=== PATIENT | male | born 1930 | race African-American/Black ===

== ENCOUNTER → 2017-08-01 | Outpatient (CLI) | payer MEDICARE ==
[2017-08-01 07:32] LABS: Urine RBC None Seen /hpf (0 - 3)
[2017-08-01 07:35] LABS: Basophils # (auto) 0 uL; Basophils % (auto) 0.6 % (0.0-2.0); Eosinophils # (auto) 0.1 uL; Eosinophils % (auto) 1.4 % (0.0-7.0); Hematocrit 39.4 % (41.0-53.0); Lymphocytes # (auto) 2.1 uL; Lymphocytes % (auto) 36.8 % (10.0-50.0); Mean Corpuscular Hemoglobin 29.8 pg (28.0-32.0); Mean Corpuscular Hgb Conc. 33.1 g/dL (32.0-36.0); Mean Platelet Volume 9.1 fL (7.4-10.4); Monocytes # (auto) 0.5 uL; Monocytes % (auto) 9.3 % (0.0-12.0); Neutrophils % (auto) 51.9 % (37.0-80.0); Platelet Count (auto) 185 10^3/uL (140-450); Red Cell Distribution Width 15.9 % (11.6-16.0); White Blood Cell 5.8 10^3/uL (4.4-10.8)
[2017-08-01 07:51] LABS: Urine Bilirubin Negative (Negative); Urine Blood Negative /uL (Negative); Urine Color Yellow (Yellow); Urine Glucose Normal (Normal); Urine Ketone Negative (Negative); Urine Nitrite Negative (Negative); Urine Squamous Epithelial Cell FEW /hpf (<5); Urine Urobilinogen Normal (Negative); Urine pH 5.5 (5.0-8.0)
[2017-08-01 07:58] LABS: Albumin 3.3 g/dL (3.4-5.0); Bilirubin, Total 0.2 mg/dL (0.2-1.0); Calcium 8.6 mg/dL (8.5-10.1); Potassium 3.8 mmol/L (3.5-5.1); Total Protein 7.1 g/dL (6.4-8.2)
== END | disposition home or self-care (01) ==
LOC: LAB 07:06
PROVIDERS: ATTEND Internal Medicine
DX: I10 Essential (primary) hypertension (principal); E11.9 Type 2 diabetes mellitus without complications; R97.20 Elevated prostate specific antigen [PSA]
CPT/HCPCS: 36415; 80053; 80061; 81001; 82043; 82607; 83036; 84153; 84439; 84443; 85025; 85652

== ENCOUNTER → 2018-01-27 | Outpatient (CLI) | payer MEDICARE ==
[2018-01-27 09:02] LABS: Basophils # (auto) 0 uL; Basophils % (auto) 0.6 % (0.0-2.0); Eosinophils # (auto) 0 uL; Eosinophils % (auto) 0.6 % (0.0-7.0); Hematocrit 41.6 % (41.0-53.0); Hemoglobin 13.5 g/dL (13.5-17.5); Lymphocytes # (auto) 2.1 uL; Lymphocytes % (auto) 34.7 % (10.0-50.0); Mean Corpuscular Hemoglobin 28.8 pg (28.0-32.0); Mean Corpuscular Hgb Conc. 32.4 g/dL (32.0-36.0); Mean Corpuscular Volume 88.7 fL (80.0-100.0); Monocytes # (auto) 0.4 uL; Monocytes % (auto) 7.2 % (0.0-12.0); Neutrophils # (auto) 3.5 uL; Neutrophils % (auto) 56.9 % (37.0-80.0); Platelet Count (auto) 257 10^3/uL (140-450); Red Blood Cells 4.69 10^6/uL (4.5-5.90); Red Cell Distribution Width 15.5 % (11.8-14.3); White Blood Cell 6.2 10^3/uL (4.4-10.8)
== END | disposition home or self-care (01) ==
LOC: LAB 08:38
PROVIDERS: ATTEND Internal Medicine
DX: I10 Essential (primary) hypertension (principal); E11.21 Type 2 diabetes mellitus with diabetic nephropathy; E53.8 Deficiency of other specified B group vitamins
CPT/HCPCS: 36415; 83036; 83540; 85025

== ENCOUNTER → 2018-02-17 | Outpatient (CLI) | payer MEDICARE | END | disposition home or self-care (01) | LOC: XYW 08:11 | PROVIDERS: ATTEND Internal Medicine | DX: R60.9 Edema, unspecified (principal); I10 Essential (primary) hypertension; E11.21 Type 2 diabetes mellitus with diabetic nephropathy | CPT/HCPCS: 93306 ==

== ENCOUNTER 2018-09-23 19:14 | Inpatient (IN) | payer MEDICARE, MEDICAID ==
[~2018-09-23] VITALS: Ht 167.6 cm; Wt 95.3 kg
[2018-09-23] MEDS ORDERED: PROMETHAZINE HCL 25 MG/ML 1ML IV ONE (21:15)
[2018-09-23] MEDS ORDERED: cloNIDine HCL 0.1 MG TAB PO ONE (21:15)
[2018-09-23 22:10] LABS: Basophils # (auto) 0 uL; Basophils % (auto) 0.3 % (0.0-2.0); Eosinophils # (auto) 0 uL; Hematocrit 43.8 % (41.0-53.0); Hemoglobin 14.4 g/dL (13.5-17.5); Lymphocytes # (auto) 0.7 uL; Lymphocytes % (auto) 9.9 % (10.0-50.0); Mean Corpuscular Hemoglobin 29.1 pg (28.0-32.0); Mean Corpuscular Hgb Conc. 32.8 g/dL (32.0-36.0); Mean Corpuscular Volume 88.6 fL (80.0-100.0); Monocytes # (auto) 0.2 uL; Monocytes % (auto) 3.3 % (0.0-12.0); Neutrophils # (auto) 6.4 uL; Neutrophils % (auto) 86.5 % (37.0-80.0); Platelet Count (auto) 204 10^3/uL (140-450); Red Blood Cells 4.95 10^6/uL (4.5-5.90); Red Cell Distribution Width 15.2 % (11.8-14.3); White Blood Cell 7.4 10^3/uL (4.4-10.8)
[2018-09-23 22:20] LABS: Albumin 3.3 g/dL (3.4-5.0); Anion Gap 8 (5-15); Blood Urea Nitrogen 15 mg/dL (7-18); Calcium 8.6 mg/dL (8.5-10.1); Carbon Dioxide 25 mmol/L (21-32); Chloride 105 mmol/L (98-107); Glucose 120 mg/dL (74-106); Magnesium 1.7 mg/dL (1.6-2.6); Sodium 138 mmol/L (136-145)
[2018-09-23 22:23] LABS: Alanine Aminotransferase 12 U/L (16-61); Aspartate Aminotransferase 11 U/L (15-37); BUN/Creatinine Ratio 15.8; GFR African American 97 mL/min; GFR Non-African American 80 mL/min
[2018-09-23 22:25] LABS: Partial Thromboplastin Time 27.7 sec (23.78-33.04); Prothrombin Time 10.7 sec (9.27-12.13)
[2018-09-23 22:28] LABS: Alkaline Phosphatase 72 U/L (45-117); Bilirubin, Total 0.3 mg/dL (0.2-1.0); Total Protein 7.3 g/dL (6.4-8.2)
[2018-09-24] MEDS ORDERED: DEXTROSE (50%) 50ML SYRG IV PRN (00:30)
[2018-09-24] MEDS ORDERED: ACETAMINOPHEN 500 MG TAB PO PRN (00:30)
[2018-09-24] MEDS ORDERED: ONDANSETRON HCL 4 MG/2 ML VIAL IV PRN (00:30)
[2018-09-24] MEDS ORDERED: MECLIZINE HCL 25 MG TAB PO PRN (00:30)
[2018-09-24 01:42] VITALS: BP 205/90
[2018-09-24] MEDS: cloNIDine HCL 0.1 MG TAB PO PRN ×2 (02:00→22:44)
[2018-09-24 05:00] VITALS: BP 103/37
[2018-09-24 05:19] LABS: Urine Bacteria NONE SEEN /hpf (None Seen); Urine Blood Negative /uL (Negative); Urine Mucus FEW (None Seen); Urine Specific Gravity 1.017 (1.001-1.035); Urine WBC 1 /hpf (0 - 3)
[2018-09-24 06:07] LABS: Basophils # (auto) 0 uL; Basophils % (auto) 0.3 % (0.0-2.0); Eosinophils # (auto) 0 uL; Eosinophils % (auto) 0.4 % (0.0-7.0); Hemoglobin 12.9 g/dL (13.5-17.5); Lymphocytes # (auto) 2.1 uL; Lymphocytes % (auto) 30.9 % (10.0-50.0); Mean Corpuscular Hemoglobin 29.3 pg (28.0-32.0); Mean Corpuscular Hgb Conc. 33.1 g/dL (32.0-36.0); Mean Corpuscular Volume 88.5 fL (80.0-100.0); Monocytes # (auto) 0.5 uL; Neutrophils # (auto) 4.2 uL; Neutrophils % (auto) 61.4 % (37.0-80.0); Platelet Count (auto) 201 10^3/uL (140-450); Red Blood Cells 4.41 10^6/uL (4.5-5.90); Red Cell Distribution Width 15.2 % (11.8-14.3); White Blood Cell 6.9 10^3/uL (4.4-10.8)
[2018-09-24] MEDS: InsuLIN REG 1unit/0.01ml Soln (100units/ml) SC SCH ×4 (06:18→22:00)
[2018-09-24] MEDS: ACCU-CHEK COMFORT CURVE STRIP VI SCH ×4 (06:18→22:23)
[2018-09-24 06:22] LABS: BUN/Creatinine Ratio 12.5; Calcium 8.3 mg/dL (8.5-10.1); Potassium 3.9 mmol/L (3.5-5.1)
[2018-09-24 09:00] VITALS: BP 106/39
[2018-09-24 09:57] LABS: Cholesterol 171 mg/dL (< 200); Triglycerides 68 mg/dL (< 150)
[2018-09-24 09:59] LABS: HDL Cholesterol 70 mg/dL (40-59); LDL Cholesterol 91 mg/dL (< 100)
[2018-09-24] MEDS ORDERED: HCTZ 25 MG TAB PO SCH (10:00)
[2018-09-24] MEDS ORDERED: LISINOPRIL 10 MG TAB PO SCH (10:00)
[2018-09-24 12:00] VITALS: BP 137/57
[2018-09-24] MEDS: METOPROLOL SUCCINATE XL 50 MG TAB PO SCH (13:00)
[2018-09-24] MEDS: LISINOPRIL 10 MG TAB PO SCH (13:00)
[2018-09-24] MEDS ORDERED: TAM04C PO (15:11)
[2018-09-24] MEDS ORDERED: ASPI81CH43 PO (15:11)
[2018-09-24] MEDS ORDERED: LISI-646 PO (15:11)
[2018-09-24] MEDS ORDERED: CHOL20007 PO (15:11)
[2018-09-24] MEDS ORDERED: IBUP600T27 PO (15:11)
[2018-09-24] MEDS ORDERED: METF-370 PO (15:11)
[2018-09-24 16:54] VITALS: BP 148/72
[2018-09-24] MEDS ORDERED: TAMSULOSIN HYDROCHLORIDE 0.4 MG CAP PO SCH (18:00)
[2018-09-24 21:00] VITALS: BP 156/67
[2018-09-24] MEDS ORDERED: ATORVASTATIN 20 MG TAB PO SCH (22:00)
[2018-09-25 05:00] VITALS: BP 111/53
[2018-09-25] MEDS ORDERED: METO-158 PO (06:05)
[2018-09-25] MEDS: ACCU-CHEK COMFORT CURVE STRIP VI SCH ×2 (06:14→11:58)
[2018-09-25] MEDS: InsuLIN REG 1unit/0.01ml Soln (100units/ml) SC SCH ×2 (06:14→11:30)
[2018-09-25 09:00] VITALS: BP 129/74
[2018-09-25] MEDS: METOPROLOL SUCCINATE XL 50 MG TAB PO SCH (09:32)
[2018-09-25] MEDS: LISINOPRIL 10 MG TAB PO SCH (09:32)
[2018-09-25] MEDS ORDERED: ASPirin-EC 81 mg tab PO SCH (10:00)
[2018-09-25 12:28] VITALS: BP 129/74
[2018-09-25 13:00] VITALS: BP 140/65
== END 2018-09-25 13:29 | disposition home or self-care (01) | DRG 305 ==
LOC: EDBD 19:14 → ER 19:26 → TELE 19:27 → TELE-CENTR 09-24 01:43
PROVIDERS: ADMIT Nurse Practitioner Family; ATTEND Family Medicine
DX: I16.1 Hypertensive emergency (principal); I50.42 Chronic combined systolic (congestive) and diastolic (congestive) heart failure; I25.10 Atherosclerotic heart disease of native coronary artery without angina pectoris; E11.9 Type 2 diabetes mellitus without complications; E78.00 Pure hypercholesterolemia, unspecified; E78.5 Hyperlipidemia, unspecified; I11.0 Hypertensive heart disease with heart failure; N40.0 Benign prostatic hyperplasia without lower urinary tract symptoms; Z82.49 Family history of ischemic heart disease and other diseases of the circulatory system; Z86.73 Personal history of transient ischemic attack (TIA), and cerebral infarction without residual deficits; I25.2 Old myocardial infarction
CPT/HCPCS: 36415; 70450; 70545; 70551; 71045; 80048; 80053; 80061; 81001; 82962; 83036; 83735; 83880; 84443; 84484; 85025; 85610; 85730; 93005; 94761; 96374; G0378; J1815

== ENCOUNTER → 2019-08-27 | Outpatient (CLI) | payer MEDICARE, MEDICAID ==
[~2019-08-27] MED LIST: ASPI81CH43 PO; CHOL20007 PO; IBUP600T27 PO; LISI-646 PO; METF-370 PO; METO-158 PO; TAM04C PO
[2019-08-27 09:19] LABS: Urine Bacteria NONE SEEN /hpf (None Seen); Urine Blood Negative /uL (Negative); Urine Mucus FEW (None Seen); Urine Specific Gravity 1.022 (1.001-1.035); Urine WBC 2 /hpf (0 - 3)
[2019-08-27 09:34] LABS: Albumin 3.5 g/dL (3.4-5.0); Calcium 9.3 mg/dL (8.5-10.1); Potassium 4.4 mmol/L (3.5-5.1)
[2019-08-27 09:40] LABS: BUN/Creatinine Ratio 17.3; Bilirubin, Total 0.3 mg/dL (0.2-1.0); Total Protein 7.3 g/dL (6.4-8.2)
[2019-08-27 09:42] LABS: Free T4 (Free Thyroxine) 1.2 ng/dL (0.89-1.76); Prostate Specific Antigen 1.38 ng/mL (0.0-4.0)
[2019-08-27 11:29] LABS: Basophils # (auto) 0 uL; Basophils % (auto) 0.5 % (0.0-2.0); Eosinophils # (auto) 0 uL; Eosinophils % (auto) 0.7 % (0.0-7.0); Hematocrit 42.1 % (41.0-53.0); Hemoglobin 13.8 g/dL (13.5-17.5); Lymphocytes # (auto) 2.4 uL; Lymphocytes % (auto) 45.2 % (10.0-50.0); Mean Corpuscular Hemoglobin 29.2 pg (28.0-32.0); Mean Corpuscular Hgb Conc. 32.8 g/dL (32.0-36.0); Mean Corpuscular Volume 89.1 fL (80.0-100.0); Monocytes # (auto) 0.5 uL; Monocytes % (auto) 10.1 % (0.0-12.0); Neutrophils # (auto) 2.3 uL; Neutrophils % (auto) 43.5 % (37.0-80.0); Platelet Count (auto) 197 10^3/uL (140-450); Red Blood Cells 4.72 10^6/uL (4.5-5.90); Red Cell Distribution Width 16.1 % (11.8-14.3); White Blood Cell 5.2 10^3/uL (4.4-10.8)
== END | disposition home or self-care (01) ==
LOC: LAB 08:05
PROVIDERS: ATTEND Internal Medicine
DX: E11.9 Type 2 diabetes mellitus without complications (principal); I10 Essential (primary) hypertension; E53.8 Deficiency of other specified B group vitamins; Z12.5 Encounter for screening for malignant neoplasm of prostate
CPT/HCPCS: 36415; 80053; 80061; 81001; 82043; 82607; 83036; 84153; 84439; 84443; 85025; 85652

== ENCOUNTER 2020-03-22 07:53 | Inpatient (IN) | payer MEDICARE, MEDICAID ==
[~2020-03-22] VITALS: Ht 167.6 cm; Wt 89.3 kg
[2020-03-22] MEDS ORDERED: SODIUM CHLORIDE 0.9% 1,000 ML IV ONE (08:11)
[2020-03-22] MEDS ORDERED: LABETALOL HCL 5 MG/ML 4ML SYRINGE IV ONE (08:15)
[2020-03-22 09:10] LABS: Basophils # (auto) 0.1 10 ^3/uL (0-0.2); Basophils % (auto) 1.1 % (0.0-2.0); Eosinophils # (auto) 0 10 ^3/uL (0-0.8); Eosinophils % (auto) 0.2 % (0.0-7.0); Hemoglobin 13.9 g/dL (13.5-17.5); Lymphocytes % (auto) 19.5 % (10.0-50.0); Mean Corpuscular Hemoglobin 28.7 pg (28.0-32.0); Mean Corpuscular Hgb Conc. 32.4 g/dL (32.0-36.0); Mean Corpuscular Volume 88.6 fL (80.0-100.0); Monocytes # (auto) 0.3 10 ^3/uL (0-1.3); Monocytes % (auto) 5.9 % (0.0-12.0); Neutrophils # (auto) 3.8 10 ^3/uL (1.6-8.6); Neutrophils % (auto) 73.3 % (37.0-80.0); Nucleated Red Blood Cells % 0.1 %; Platelet Count (auto) 185 10^3/uL (140-450); Red Blood Cells 4.86 10^6/uL (4.5-5.90); Red Cell Distribution Width 15.4 % (11.8-14.3); White Blood Cell 5.1 10^3/uL (4.4-10.8)
[2020-03-22 09:29] LABS: Alanine Aminotransferase 10 U/L (16-61); Albumin 3.3 g/dL (3.4-5.0); Anion Gap 7 (5-15); Aspartate Aminotransferase 9 U/L (15-37); BUN/Creatinine Ratio 17.2; Blood Urea Nitrogen 21 mg/dL (7-18); Calcium 8.7 mg/dL (8.5-10.1); Carbon Dioxide 28 mmol/L (21-32); Chloride 104 mmol/L (98-107); GFR African American 72 mL/min; GFR Non-African American 60 mL/min; Glucose 130 mg/dL (74-106); Potassium 4.1 mmol/L (3.5-5.1); Sodium 139 mmol/L (136-145)
[2020-03-22 09:34] LABS: Alkaline Phosphatase 70 U/L (45-117); Bilirubin, Total 0.2 mg/dL (0.2-1.0); Total Protein 7.4 g/dL (6.4-8.2)
[2020-03-22 10:01] LABS: Urine WBC None Seen /hpf (0 - 3)
[2020-03-22 10:12] LABS: Urine Bacteria NONE SEEN /hpf (None Seen); Urine Blood Negative /uL (Negative); Urine Specific Gravity 1.019 (1.001-1.035)
[2020-03-22] MEDS ORDERED: hydrALAZINE HCL 20 MG/ML VL IV ONE (12:00)
[2020-03-22] MEDS ORDERED: DEXTROSE (50%) 50ML SYRG IV PRN (12:45)
[2020-03-22] MEDS ORDERED: LOSARTAN POTASSIUM 50 MG TAB PO ONE (12:45)
[2020-03-22] MEDS ORDERED: MORPHINE SULF INJ 2 MG/ML SYRINGE 1ML IV PRN (12:45)
[2020-03-22] MEDS ORDERED: NITROGLYCERIN 0.4 MG SL TAB SL PRN (12:45)
--- NOTE | 2020-03-22 14:20 | NUR ---
BLOOD PRESSURE 174/74 HR 72 PAGE CANDELARIO KELLER
[2020-03-22] MEDS: ERYTHROMY OPTH OINT 5mg/gm 1gm RIGHTEYE SCH ×2 (14:25→22:00)
[2020-03-22] MEDS: hydrALAZINE HCL 25 MG TAB PO SCH ×2 (14:25→22:16)
--- NOTE | 2020-03-22 14:33 | NUR ---
CANDELARIO KELLER CALLED BACK, MADE AWARE OF PATIENT'S BLOOD PRESSURE ON ARRIVAL AND NOW, NEW ORDERS OBTAIN, ALSO MADE AWARE THAT NS IS ON HOLD, SAID TO KAREY DIAZ
--- NOTE | 2020-03-22 14:35 | NUR ---
Telemetry admit from ER LUANNE SANTORO admitted to Telemetry unit after SBAR received. Patient oriented to Jessica Hamlin, primary RN, unit, room, bed, and unit policies regarding patient care and visiting hours. Patient now on continuous telemetry monitoring, tele box # [id number] and telemetry reading on arrival to unit is . Patient placed on bedside oxygen, weighed by bedscale and encouraged to call if they need something. All questions and concerns addressed, patient verbalized understanding. Note:
[2020-03-22 15:40] VITALS: BP 160/58
[2020-03-22] MEDS ORDERED: hydrALAZINE HCL 20 MG/ML VL IV PRN (16:30)
[2020-03-22] MEDS ORDERED: ISOSORBIDE MONONITRATE ER 60 MG TAB PO ONE (16:30)
[2020-03-22] MEDS: InsuLIN REG 1unit/0.01ml Soln (100units/ml) SC SCH ×2 (17:00→22:00)
[2020-03-22 17:04] VITALS: BP 129/72
[2020-03-22] MEDS: ACCU-CHEK COMFORT CURVE STRIP VI SCH ×2 (17:05→22:15)
--- NOTE | 2020-03-22 18:46 | NUR ---
PT CONTINUE STABLE, CONTINUE MONITORING
--- NOTE | 2020-03-22 19:00 | NUR ---
Opening Shift Note Assumed care of patient, awake and alert and resting in bed in low position with HOB in [facility] position. No S/S of distress/SOB or pain. Call light at pt's side in the bed. Instructed on POC and to call for assist PRN, will continue to monitor for changes Q1hr and PRN.
[2020-03-22 21:48] VITALS: BP 156/67
[2020-03-23] MEDS: InsuLIN REG 1unit/0.01ml Soln (100units/ml) SC SCH ×4 (05:23→21:34)
[2020-03-23] MEDS: hydrALAZINE HCL 25 MG TAB PO SCH ×3 (05:23→21:33)
[2020-03-23] MEDS: ERYTHROMY OPTH OINT 5mg/gm 1gm RIGHTEYE SCH ×3 (05:23→21:34)
[2020-03-23] MEDS: ACCU-CHEK COMFORT CURVE STRIP VI SCH ×4 (05:26→21:34)
[2020-03-23 05:38] VITALS: BP 165/78
[2020-03-23 05:55] LABS: Basophils # (auto) 0 10 ^3/uL (0-0.2); Basophils % (auto) 0.3 % (0.0-2.0); Eosinophils # (auto) 0.1 10 ^3/uL (0-0.8); Eosinophils % (auto) 0.8 % (0.0-7.0); Hematocrit 39.2 % (41.0-53.0); Hemoglobin 13.1 g/dL (13.5-17.5); Lymphocytes # (auto) 2.2 10 ^3/uL (0.4-5.4); Lymphocytes % (auto) 33.5 % (10.0-50.0); Mean Corpuscular Hemoglobin 29.3 pg (28.0-32.0); Mean Corpuscular Hgb Conc. 33.3 g/dL (32.0-36.0); Monocytes # (auto) 0.6 10 ^3/uL (0-1.3); Neutrophils # (auto) 3.6 10 ^3/uL (1.6-8.6); Neutrophils % (auto) 55.4 % (37.0-80.0); Platelet Count (auto) 202 10^3/uL (140-450); Red Blood Cells 4.45 10^6/uL (4.5-5.90); Red Cell Distribution Width 15.3 % (11.8-14.3); White Blood Cell 6.5 10^3/uL (4.4-10.8)
[2020-03-23 06:09] LABS: Potassium 3.9 mmol/L (3.5-5.1)
[2020-03-23 06:22] LABS: BUN/Creatinine Ratio 14.9; Bilirubin, Total 0.4 mg/dL (0.2-1.0); Calcium 8.4 mg/dL (8.5-10.1)
[2020-03-23 08:00] VITALS: BP 123/70
--- NOTE | 2020-03-23 08:00 | NUR ---
ASSESSMENT NOTE PT IS ALERT ORIENTED X4, RESTING IN BED IN LOW [place] POSITION, ABLE TO VERBALIS HIS NEEDS, SELF REPOSITION NEEDED, PAIN 0/10, USE URINAL NEEDED, CALL LIGHT WITHIN REACH
[2020-03-23] MEDS: ISOSORBIDE MONONITRATE ER 60 MG TAB PO SCH (08:47)
[2020-03-23] MEDS: LOSARTAN POTASSIUM 50 MG TAB PO SCH (08:47)
[2020-03-23 09:00] VITALS: BP 170/80
[2020-03-23] MEDS ORDERED: TAMSULOSIN HYDROCHLORIDE 0.4 MG CAP PO SCH (10:00)
[2020-03-23] MEDS ORDERED: cloNIDine HCL 0.1 MG TAB PO ONE (12:30)
--- NOTE | 2020-03-23 12:40 | NUR ---
OUT TO RADIOLOGY FOR HEAD CT
[2020-03-23] MEDS ORDERED: ONDANSETRON HCL 4 MG/2 ML VIAL IV PRN (12:45)
[2020-03-23] MEDS ORDERED: cloNIDine HCL 0.1 MG TAB PO PRN (12:45)
[2020-03-23 13:00] VITALS: BP 168/86
--- NOTE | 2020-03-23 13:00 | NUR ---
PT IS BACK TO HIS ROOM, NO DISTRESS NOTED
[2020-03-23 13:46] LABS: Cholesterol 178 mg/dL (< 200); HDL Cholesterol 74 mg/dL (40-59); LDL Cholesterol 87 mg/dL (< 100); Triglycerides 84 mg/dL (< 150)
[2020-03-23 17:00] VITALS: BP 154/72
[2020-03-23] MEDS: TAMSULOSIN HYDROCHLORIDE 0.4 MG CAP PO SCH (17:19)
--- NOTE | 2020-03-23 18:15 | NUR ---
PT CONTINUE STABLE, CONTINUE MONITORING
[2020-03-23] MEDS ORDERED: LORazepam 2MG/ML-1ML VIAL IV PRN (19:00)
--- NOTE | 2020-03-23 19:10 | NUR ---
Opening Shift Note Assumed care of patient, awake and alert. No S/S of distress/SOB or pain. Instructed on POC and to call for assist PRN, will continue to monitor for changes Q1hr and PRN. Side rails up x2. Bed locked in lowest position. Call light within reach.
[2020-03-23] MEDS: cloNIDine HCL 0.1 MG TAB PO SCH (21:33)
[2020-03-23] MEDS: ATORVASTATIN 20 MG TAB PO SCH (21:34)
[2020-03-23 22:15] VITALS: BP 130/70
[2020-03-24 05:21] VITALS: BP 121/59
[2020-03-24] MEDS: hydrALAZINE HCL 25 MG TAB PO SCH ×3 (06:00→22:43)
[2020-03-24] MEDS: ACCU-CHEK COMFORT CURVE STRIP VI SCH ×4 (06:15→22:45)
[2020-03-24] MEDS: ERYTHROMY OPTH OINT 5mg/gm 1gm RIGHTEYE SCH ×3 (06:15→22:44)
[2020-03-24] MEDS: InsuLIN REG 1unit/0.01ml Soln (100units/ml) SC SCH ×4 (06:22→22:00)
--- NOTE | 2020-03-24 07:11 | NUR ---
Opening Shift Note Assumed care of patient, awake and alert and resting in bed in low position. No S/S of distress/SOB or pain. Call light at pt's side in the bed. Instructed on POC and to call for assist PRN, patient scheduled to pacemaker placement with Dr. Peck today and has been NPO since midnight, will continue to monitor for changes Q1hr and PRN.
[2020-03-24 07:31] LABS: Basophils # (auto) 0 10 ^3/uL (0-0.2); Basophils % (auto) 0.6 % (0.0-2.0); Eosinophils # (auto) 0 10 ^3/uL (0-0.8); Eosinophils % (auto) 0.7 % (0.0-7.0); Hematocrit 40.1 % (41.0-53.0); Lymphocytes # (auto) 2.2 10 ^3/uL (0.4-5.4); Mean Corpuscular Hemoglobin 28.6 pg (28.0-32.0); Mean Corpuscular Hgb Conc. 32.4 g/dL (32.0-36.0); Mean Corpuscular Volume 88.4 fL (80.0-100.0); Monocytes # (auto) 0.9 10 ^3/uL (0-1.3); Monocytes % (auto) 12.8 % (0.0-12.0); Neutrophils # (auto) 3.6 10 ^3/uL (1.6-8.6); Neutrophils % (auto) 52.9 % (37.0-80.0); Nucleated Red Blood Cells % 0.1 %; Platelet Count (auto) 198 10^3/uL (140-450); Red Blood Cells 4.53 10^6/uL (4.5-5.90); Red Cell Distribution Width 15.5 % (11.8-14.3); White Blood Cell 6.8 10^3/uL (4.4-10.8)
[2020-03-24 07:46] LABS: INR 1.07 (0.9-1.15); Partial Thromboplastin Time 30.1 sec (23.64-32.05)
[2020-03-24 07:49] LABS: BUN/Creatinine Ratio 14.9; Calcium 8.7 mg/dL (8.5-10.1); Potassium 4.1 mmol/L (3.5-5.1)
--- NOTE | 2020-03-24 08:40 | NUR ---
PATIENT OFF UNIT TO [facility] FOR PROCEDURE
[2020-03-24] MEDS ORDERED: VANCOMYCIN HCL 1000 MG VL ONE (08:50)
[2020-03-24] MEDS ORDERED: VANCOMYCIN 1GM/250ML 250 ML IV ONE (08:50)
[2020-03-24 09:00] VITALS: BP 149/79
[2020-03-24] MEDS ORDERED: MIDAZOLAM HCL 1MG/1ML-2 ML VIAL ONE ×2 (09:17→10:32)
[2020-03-24] MEDS ORDERED: fentaNYL CITRATE 100 MCG/2 ML VL ONE (09:17)
[2020-03-24] MEDS ORDERED: LIDOCAINE 2%HCL (LOCAL ANESTH.) INJ 20ML MDV ONE ×2 (09:22→09:26)
[2020-03-24] MEDS: ISOSORBIDE MONONITRATE ER 60 MG TAB PO SCH (09:51)
[2020-03-24] MEDS: cloNIDine HCL 0.1 MG TAB PO SCH ×2 (09:51→22:43)
[2020-03-24] MEDS: LOSARTAN POTASSIUM 50 MG TAB PO SCH (09:51)
[2020-03-24] MEDS: ASPirin-EC 81 mg tab PO SCH (10:00)
--- NOTE | 2020-03-24 10:02 | NUR ---
Per MD Pinon, once Renal Arterial US complete and resulted, call ARIANNA Kaye to obtain clearance for discharge in AM. Will carry out order.
--- NOTE | 2020-03-24 10:02 | NUR ---
MD Cristal Pinon rounding on patient. Patient still off unit to procedure.
[2020-03-24] MEDS ORDERED: hydrALAZINE HCL 20 MG/ML VL ONE (10:27)
--- NOTE | 2020-03-24 12:22 | NUR ---
Call from radiology in regards of brain MRI order, due to pacemaker insertion, order will have to be cancelled. Cannot proceed until 6 months from insertion.
--- NOTE | 2020-03-24 12:38 | NUR ---
Patient back in room S/P dual chamber pacemaker insertion. Access to left upper chest, with dermabond, dry and intact. Left arm sling in place with an ice pack on site. Patient denies pain or discomfort at this time. Education reinforced on post procedure care. Sling to stay on for 12hrs post procedure. VS wnl. Will continue to monitor.
--- NOTE | 2020-03-24 15:47 | NUR ---
Dr. Hercules aware of cancelled MRI order. No new orders received.
[2020-03-24 17:00] VITALS: BP 143/62
[2020-03-24] MEDS: TAMSULOSIN HYDROCHLORIDE 0.4 MG CAP PO SCH (18:07)
--- NOTE | 2020-03-24 18:10 | NUR ---
In regards of Renal US: renal US completed however not resulted as of right now. Will endorse to NOC shift RN.
[2020-03-24 22:00] VITALS: BP 133/71
[2020-03-24] MEDS: ATORVASTATIN 20 MG TAB PO SCH (22:44)
--- NOTE | 2020-03-24 23:52 | NUR ---
Endorsed care of pt to Bozena BRO at this time.
--- NOTE | 2020-03-24 23:55 | NUR ---
Report received from ADALI Zhang. Care assumed. Patient rounded, communication relayed that I'm assuming care. All concerns addressed. Needs attended to. Will monitor prn and Q1hr.
[2020-03-25 05:00] VITALS: BP 143/69
[2020-03-25] MEDS: hydrALAZINE HCL 25 MG TAB PO SCH ×3 (05:31→22:34)
[2020-03-25] MEDS: ERYTHROMY OPTH OINT 5mg/gm 1gm RIGHTEYE SCH ×3 (05:36→22:35)
[2020-03-25] MEDS: InsuLIN REG 1unit/0.01ml Soln (100units/ml) SC SCH ×4 (07:00→22:00)
[2020-03-25] MEDS: ACCU-CHEK COMFORT CURVE STRIP VI SCH ×4 (07:02→22:00)
--- NOTE | 2020-03-25 07:30 | NUR ---
Opening Shift Note Assuming care of patient at this time. Patient is awake and alert. Patient denies pain. Patient shows no signs or symptoms of distress or shortness of breath. Bed is locked and lowered with side rails up x2. Instructed patient on the plan of care for today and to call for assistance as needed. Call light within reach. Will continue to round hourly and as needed.
[2020-03-25 08:30] VITALS: BP 160/84
[2020-03-25] MEDS: cloNIDine HCL 0.1 MG TAB PO SCH ×2 (11:12→22:34)
[2020-03-25] MEDS: ASPirin-EC 81 mg tab PO SCH (11:12)
[2020-03-25] MEDS: ISOSORBIDE MONONITRATE ER 60 MG TAB PO SCH (11:12)
[2020-03-25] MEDS: LOSARTAN POTASSIUM 50 MG TAB PO SCH (11:13)
--- NOTE | 2020-03-25 11:45 | NUR ---
Pacemaker Interrogation Pacemaker was interrogated at this time. Per csr technician, pacemaker is operating correctly. Hood Fitter will notify Dr. Peck.
[2020-03-25 12:30] VITALS: BP 141/84
--- NOTE | 2020-03-25 12:30 | NUR ---
Page to Dr. Peck Page to Dr. Peck at this time regarding discharge clearance. Awaiting callback.
--- NOTE | 2020-03-25 15:16 | NUR ---
Cardiac Clearance Call from Dr. Peck at this time. Patient is clear for discharge and needs to follow-up with Dr. Peck.
--- NOTE | 2020-03-25 15:45 | NUR ---
Call from Dr. Zi Pinon aware of cardiac clearance. Patient to be discharge in the morning.
[2020-03-25 17:00] VITALS: BP 119/69
[2020-03-25] MEDS: TAMSULOSIN HYDROCHLORIDE 0.4 MG CAP PO SCH (17:46)
--- NOTE | 2020-03-25 19:28 | NUR ---
Closing Shift Note Patient resting in bed. No distress noted. Report given. Will endorse care to the product safety manager RN.
--- NOTE | 2020-03-25 19:30 | NUR ---
Opening Shift Note Assumed care of patient, awake and alert. No S/S of distress/SOB or pain. Instructed on POC and to call for assist PRN, will continue to monitor for changes Q1hr and PRN.
[2020-03-25 21:54] VITALS: BP 131/66
[2020-03-25] MEDS: ATORVASTATIN 20 MG TAB PO SCH (22:34)
[2020-03-26 05:00] VITALS: BP 112/59
[2020-03-26] MEDS: hydrALAZINE HCL 25 MG TAB PO SCH (06:48)
[2020-03-26] MEDS: ERYTHROMY OPTH OINT 5mg/gm 1gm RIGHTEYE SCH (06:49)
[2020-03-26] MEDS: InsuLIN REG 1unit/0.01ml Soln (100units/ml) SC SCH ×2 (07:00→11:30)
[2020-03-26] MEDS: ACCU-CHEK COMFORT CURVE STRIP VI SCH ×2 (07:05→11:41)
[2020-03-26 08:00] VITALS: BP 141/62
[2020-03-26 09:00] VITALS: BP 141/62
[2020-03-26] MEDS: ASPirin-EC 81 mg tab PO SCH (09:32)
[2020-03-26] MEDS: cloNIDine HCL 0.1 MG TAB PO SCH (09:32)
[2020-03-26] MEDS: LOSARTAN POTASSIUM 50 MG TAB PO SCH (09:32)
[2020-03-26] MEDS: ISOSORBIDE MONONITRATE ER 60 MG TAB PO SCH (09:33)
[2020-03-26 11:29] VITALS: BP 141/62
--- NOTE | 2020-03-26 12:30 | NUR ---
Discharge instructions given as ordered. Encourage to follow up with PMD as instructed. All questions and concerns addressed. Patient verbalized understanding. IV removed with catheter intact, pressure dressing applied, sling in place. Telemetry unit returned to ICU. Patient taken to vehicle via wheelchair with all personal belongings, accompanied by staff and family member. No distress noted at time of departure.
[2020-03-26 13:00] VITALS: BP 137/72
== END 2020-03-26 12:30 | disposition home or self-care (01) | DRG 243 ==
LOC: ER 07:53 → TELE 07:54 → TELE-CENTR 14:20
PROVIDERS: ADMIT Nurse Practitioner Acute Care; ATTEND Family Medicine
PROC: 0JH606Z Insertion of Pacemaker, Dual Chamber into Chest Subcutaneous Tissue and Fascia, Open Approach (ICD-10-PCS; principal; 2020-03-24)
PROC: 02HK3JZ Insertion of Pacemaker Lead into Right Ventricle, Percutaneous Approach (ICD-10-PCS; 2020-03-24)
PROC: 02H63JZ Insertion of Pacemaker Lead into Right Atrium, Percutaneous Approach (ICD-10-PCS; 2020-03-24)
DX: I44.1 Atrioventricular block, second degree (principal); I16.9 Hypertensive crisis, unspecified; E44.1 Mild protein-calorie malnutrition; I49.5 Sick sinus syndrome; H10.9 Unspecified conjunctivitis; E78.00 Pure hypercholesterolemia, unspecified; E66.9 Obesity, unspecified; N18.3 Chronic kidney disease, stage 3 (moderate); N40.1 Benign prostatic hyperplasia with lower urinary tract symptoms; Z68.31 Body mass index [BMI] 31.0-31.9, adult; E11.22 Type 2 diabetes mellitus with diabetic chronic kidney disease; E78.5 Hyperlipidemia, unspecified; F17.200 Nicotine dependence, unspecified, uncomplicated; I12.9 Hypertensive chronic kidney disease with stage 1 through stage 4 chronic kidney disease, or unspecified chronic kidney disease; Z79.82 Long term (current) use of aspirin; Z79.84 Long term (current) use of oral hypoglycemic drugs; Z79.899 Other long term (current) drug therapy; Z86.73 Personal history of transient ischemic attack (TIA), and cerebral infarction without residual deficits
CPT/HCPCS: 33208; 36415; 70450; 71045; 71046; 80048; 80053; 80061; 81001; 82533; 82962; 83036; 83690; 83735; 84443; 84484; 85025; 85610; 85730; 86850; 86900; 86901; 93005; 93306; 93886; 93975; 96361; 96374; 96375; 97163; 99152; 99153; C1785; G0378; J2250; J3490

== ENCOUNTER → 2020-08-08 | Outpatient (CLI) | payer MEDICARE, MEDICAID ==
[~2020-08-08] VITALS: Ht 167.6 cm; Wt 90.3 kg
[~2020-08-08] MED LIST changes: +ADENOSINE 76 MG in GIVE UN-DILUTED 0 ML IV STA
[2020-08-08 09:32] VITALS: BP 156/66
== END | disposition home or self-care (01) ==
LOC: XY 07:21
PROVIDERS: ATTEND Internal Medicine
DX: R07.9 Chest pain, unspecified (principal)
CPT/HCPCS: 78452; 93017; A9500; J0153

== ENCOUNTER → 2020-09-01 | Outpatient (CLI) | payer MEDICARE, MEDICAID ==
[~2020-09-01] MED LIST changes: -ADENOSINE 76 MG in GIVE UN-DILUTED 0 ML IV STA
[2020-09-01 09:01] LABS: Basophils # (auto) 0.1 10 ^3/uL (0-0.2); Basophils % (auto) 0.8 % (0.0-2.0); Eosinophils # (auto) 0 10 ^3/uL (0-0.8); Eosinophils % (auto) 0.5 % (0.0-7.0); Hematocrit 40.9 % (41.0-53.0); Hemoglobin 13.3 g/dL (13.5-17.5); Lymphocytes # (auto) 2.2 10 ^3/uL (0.4-5.4); Lymphocytes % (auto) 33.2 % (10.0-50.0); Mean Corpuscular Hemoglobin 29.1 pg (28.0-32.0); Mean Corpuscular Hgb Conc. 32.5 g/dL (32.0-36.0); Mean Corpuscular Volume 89.6 fL (80.0-100.0); Monocytes # (auto) 0.5 10 ^3/uL (0-1.3); Monocytes % (auto) 7.7 % (0.0-12.0); Neutrophils # (auto) 3.8 10 ^3/uL (1.6-8.6); Neutrophils % (auto) 57.8 % (37.0-80.0); Nucleated Red Blood Cells % 0.1 %; Platelet Count (auto) 195 10^3/uL (140-450); Red Blood Cells 4.56 10^6/uL (4.5-5.90); Red Cell Distribution Width 14.6 % (11.8-14.3); White Blood Cell 6.6 10^3/uL (4.4-10.8)
[2020-09-01 09:13] LABS: Albumin 3.5 g/dL (3.4-5.0); Calcium 9.3 mg/dL (8.5-10.1); Potassium 4.2 mmol/L (3.5-5.1)
[2020-09-01 09:17] LABS: BUN/Creatinine Ratio 15.6; Bilirubin, Total 0.3 mg/dL (0.2-1.0); Total Protein 7.5 g/dL (6.4-8.2)
[2020-09-01 09:23] LABS: Prostate Specific Antigen 2.19 ng/mL (0.0-4.0)
== END | disposition home or self-care (01) ==
LOC: LAB 08:36
PROVIDERS: ATTEND Internal Medicine
DX: E11.9 Type 2 diabetes mellitus without complications (principal); I10 Essential (primary) hypertension; N40.1 Benign prostatic hyperplasia with lower urinary tract symptoms
CPT/HCPCS: 36415; 80053; 82607; 83036; 83540; 84153; 85025

== ENCOUNTER 2021-05-14 07:17 | Inpatient (IN) | payer MEDICARE, MEDICAID ==
[~2021-05-14] VITALS: Ht 168.9 cm; Wt 66.5 kg
[~2021-05-14 07:17] MED LIST changes: -LISI-646 PO; +LISI20TA28 PO
[2021-05-14] MEDS ORDERED: ENOXAPARIN SOD 100 MG/1 ML SYRINGE SC ONE (08:45)
[2021-05-14 09:59] LABS: Basophils # (auto) 0 10 ^3/uL (0-0.2); Basophils % (auto) 0.5 % (0.0-2.0); Eosinophils # (auto) 0 10 ^3/uL (0-0.8); Eosinophils % (auto) 0.5 % (0.0-7.0); Hematocrit 37.7 % (41.0-53.0); Hemoglobin 12.4 g/dL (13.5-17.5); Lymphocytes # (auto) 1.6 10 ^3/uL (0.4-5.4); Lymphocytes % (auto) 20.2 % (10.0-50.0); Mean Corpuscular Hemoglobin 29.3 pg (28.0-32.0); Mean Corpuscular Hgb Conc. 32.9 g/dL (32.0-36.0); Mean Corpuscular Volume 89.1 fL (80.0-100.0); Monocytes # (auto) 0.7 10 ^3/uL (0-1.3); Monocytes % (auto) 8.7 % (0.0-12.0); Neutrophils # (auto) 5.7 10 ^3/uL (1.6-8.6); Neutrophils % (auto) 70.1 % (37.0-80.0); Platelet Count (auto) 176 10^3/uL (140-450); Red Blood Cells 4.23 10^6/uL (4.5-5.90); Red Cell Distribution Width 15.2 % (11.8-14.3); White Blood Cell 8.1 10^3/uL (4.4-10.8)
[2021-05-14 10:12] LABS: Alanine Aminotransferase 13 U/L (16-61); Albumin 3.2 g/dL (3.4-5.0); Anion Gap 7 (5-15); Blood Urea Nitrogen 27 mg/dL (7-18); Calcium 8.8 mg/dL (8.5-10.1); Carbon Dioxide 24 mmol/L (21-32); Chloride 112 mmol/L (98-107); Glucose 128 mg/dL (74-106); Potassium 4.6 mmol/L (3.5-5.1); Sodium 143 mmol/L (136-145)
[2021-05-14 10:19] LABS: Alkaline Phosphatase 76 U/L (45-117); Aspartate Aminotransferase 13 U/L (15-37); Bilirubin, Total 0.2 mg/dL (0.2-1.0); GFR African American 57 mL/min; GFR Non-African American 47 mL/min; Total Protein 7.3 g/dL (6.4-8.2)
[2021-05-14] MEDS ORDERED: MORPHINE SULF INJ 2 MG/ML SYRINGE 1ML IV PRN ×2 (11:00)
[2021-05-14] MEDS ORDERED: ACETAMINOPHEN 500 MG TAB PO PRN (11:00)
[2021-05-14] MEDS ORDERED: SODIUM CHLORIDE 0.9% 1,000 ML IV ONE (11:00)
[2021-05-14] MEDS ORDERED: HYDROcodone-ACET 5/325MG TAB PO PRN (11:00)
[2021-05-14] MEDS ORDERED: ONDANSETRON HCL 4 MG/2 ML VIAL IV PRN (11:00)
[2021-05-14] MEDS ORDERED: NITROGLYCERIN 0.4 MG SL TAB SL PRN (11:00)
[2021-05-14] MEDS ORDERED: DEXTROSE (50%) 50ML SYRG IV PRN (11:15)
[2021-05-14] MEDS: ACCU-CHEK COMFORT CURVE STRIP VI SCH ×3 (12:01→20:47)
[2021-05-14] MEDS: InsuLIN REG 1unit/0.01ml Soln (100units/ml) SC SCH ×3 (12:01→20:46)
[2021-05-14 12:29] LABS: Urine Bacteria NONE SEEN /hpf (None Seen); Urine Blood Negative /uL (Negative); Urine Specific Gravity 1.012 (1.001-1.035); Urine WBC 2 /hpf (0 - 3)
[2021-05-14] MEDS ORDERED: IOHEXOL 350 MG/ML 100ML IJ ONE (16:57)
[2021-05-14 17:13] VITALS: BP 138/84
[2021-05-14] MEDS: ENOXAPARIN SOD 100 MG/1 ML SYRINGE SC SCH (20:48)
[2021-05-14 22:00] VITALS: BP 158/70
[2021-05-15 05:00] VITALS: BP 159/82
[2021-05-15 06:07] LABS: Basophils # (auto) 0.1 10 ^3/uL (0-0.2); Basophils % (auto) 0.7 % (0.0-2.0); Eosinophils # (auto) 0.1 10 ^3/uL (0-0.8); Hemoglobin 12.9 g/dL (13.5-17.5); Lymphocytes % (auto) 36.4 % (10.0-50.0); Mean Corpuscular Hemoglobin 30.3 pg (28.0-32.0); Mean Corpuscular Volume 89.3 fL (80.0-100.0); Monocytes # (auto) 0.8 10 ^3/uL (0-1.3); Monocytes % (auto) 9.2 % (0.0-12.0); Neutrophils # (auto) 4.3 10 ^3/uL (1.6-8.6); Neutrophils % (auto) 52.7 % (37.0-80.0); Platelet Count (auto) 174 10^3/uL (140-450); Red Blood Cells 4.25 10^6/uL (4.5-5.90); Red Cell Distribution Width 15.4 % (11.8-14.3); White Blood Cell 8.2 10^3/uL (4.4-10.8)
[2021-05-15] MEDS: InsuLIN REG 1unit/0.01ml Soln (100units/ml) SC SCH ×4 (06:16→20:32)
[2021-05-15] MEDS: ACCU-CHEK COMFORT CURVE STRIP VI SCH ×4 (06:16→20:30)
[2021-05-15 06:30] LABS: Calcium 8.5 mg/dL (8.5-10.1); Potassium 4.3 mmol/L (3.5-5.1)
[2021-05-15 06:34] LABS: BUN/Creatinine Ratio 17.1
[2021-05-15 09:00] VITALS: BP 165/100
[2021-05-15] MEDS ORDERED: ASPirin 81 mg TAB PO SCH (10:00)
[2021-05-15] MEDS: ENOXAPARIN SOD 100 MG/1 ML SYRINGE SC SCH ×2 (10:15→20:34)
[2021-05-15] MEDS: TAMSULOSIN HYDROCHLORIDE 0.4 MG CAP PO SCH (10:16)
[2021-05-15] MEDS: METOPROLOL TARTRATE 50 MG TAB PO SCH (10:17)
[2021-05-15] MEDS ORDERED: CLON0.1T PO (10:25)
[2021-05-15] MEDS ORDERED: LISI20TA28 PO (10:25)
[2021-05-15] MEDS ORDERED: MULT-1058 PO (10:25)
[2021-05-15] MEDS: FAMOTIDINE 20 MG TAB PO SCH (10:26)
[2021-05-15] MEDS ORDERED: AML5T PO (11:02)
[2021-05-15] MEDS ORDERED: amLODIPine BESYLATE 5 MG TAB PO ONE (12:15)
[2021-05-15] MEDS ORDERED: cloNIDine HCL 0.1 MG TAB PO PRN (12:45)
[2021-05-15 13:00] VITALS: BP 200/100
[2021-05-15 14:13] LABS: INR 1.08 (0.9-1.15)
[2021-05-15 15:15] VITALS: BP 160/69
[2021-05-15 17:00] VITALS: BP 154/81
[2021-05-15 22:00] VITALS: BP 165/80
[2021-05-16 05:00] VITALS: BP 139/65
[2021-05-16] MEDS: ACCU-CHEK COMFORT CURVE STRIP VI SCH ×4 (06:05→22:22)
[2021-05-16] MEDS: InsuLIN REG 1unit/0.01ml Soln (100units/ml) SC SCH ×4 (06:06→22:27)
[2021-05-16 06:22] LABS: Basophils # (auto) 0 10 ^3/uL (0-0.2); Basophils % (auto) 0.5 % (0.0-2.0); Eosinophils # (auto) 0.1 10 ^3/uL (0-0.8); Hematocrit 36.2 % (41.0-53.0); Hemoglobin 12.2 g/dL (13.5-17.5); Lymphocytes # (auto) 2.7 10 ^3/uL (0.4-5.4); Lymphocytes % (auto) 42.3 % (10.0-50.0); Mean Corpuscular Hemoglobin 29.8 pg (28.0-32.0); Mean Corpuscular Hgb Conc. 33.8 g/dL (32.0-36.0); Mean Corpuscular Volume 88.2 fL (80.0-100.0); Monocytes # (auto) 0.7 10 ^3/uL (0-1.3); Monocytes % (auto) 11.3 % (0.0-12.0); Neutrophils # (auto) 2.8 10 ^3/uL (1.6-8.6); Neutrophils % (auto) 44.9 % (37.0-80.0); Nucleated Red Blood Cells % 0.1 %; Platelet Count (auto) 172 10^3/uL (140-450); Red Cell Distribution Width 15.1 % (11.8-14.3); White Blood Cell 6.3 10^3/uL (4.4-10.8)
[2021-05-16 06:42] LABS: Calcium 8.4 mg/dL (8.5-10.1); Potassium 3.8 mmol/L (3.5-5.1)
[2021-05-16 06:43] LABS: INR 1.08 (0.9-1.15); Partial Thromboplastin Time 36.5 sec (23.0-31.2)
[2021-05-16 07:40] VITALS: BP 141/69
[2021-05-16 09:00] VITALS: BP 141/64
[2021-05-16] MEDS: amLODIPine BESYLATE 5 MG TAB PO SCH ×2 (10:00→10:49)
[2021-05-16] MEDS: FAMOTIDINE 20 MG TAB PO SCH (10:00)
[2021-05-16] MEDS: TAMSULOSIN HYDROCHLORIDE 0.4 MG CAP PO SCH (10:00)
[2021-05-16] MEDS: METOPROLOL TARTRATE 50 MG TAB PO SCH ×2 (10:00→10:49)
[2021-05-16] MEDS: ENOXAPARIN SOD 100 MG/1 ML SYRINGE SC SCH (10:25)
[2021-05-16 13:00] VITALS: BP 142/66
[2021-05-16] MEDS ORDERED: IODIXANOL 320MG/ML 100ML BTL IV ONE (13:05)
[2021-05-16] MEDS ORDERED: LIDOCAINE 2%HCL (LOCAL ANESTH.) INJ 20ML MDV ONE (13:05)
[2021-05-16] MEDS ORDERED: fentaNYL CITRATE 100 MCG/2 ML VL ONE (13:42)
[2021-05-16] MEDS ORDERED: ANGIOMAX 250 MG VIAL IV ONE (13:42)
[2021-05-16] MEDS ORDERED: MIDAZOLAM HCL 1MG/1ML-2 ML VIAL ONE (13:43)
[2021-05-16] MEDS ORDERED: SODIUM CHL 0.9% 50 ML ONE (13:43)
[2021-05-16] MEDS ORDERED: HEPARIN SODIUM (PORCINE) 5000 UNITS/ML 1ML VIAL ONE (13:45)
[2021-05-16] MEDS ORDERED: hydrALAZINE HCL 20 MG/ML VL ONE (15:06)
[2021-05-16 22:00] VITALS: BP 123/63
[2021-05-16] MEDS: RIVAROXABAN 20 MG TAB PO SCH (22:12)
[2021-05-17 04:49] VITALS: BP 134/45
[2021-05-17] MEDS: InsuLIN REG 1unit/0.01ml Soln (100units/ml) SC SCH ×4 (06:01→21:37)
[2021-05-17] MEDS: ACCU-CHEK COMFORT CURVE STRIP VI SCH ×4 (06:02→21:37)
[2021-05-17 06:03] LABS: Basophils # (auto) 0 10 ^3/uL (0-0.2); Basophils % (auto) 0.4 % (0.0-2.0); Eosinophils # (auto) 0.1 10 ^3/uL (0-0.8); Eosinophils % (auto) 1.1 % (0.0-7.0); Hematocrit 37.2 % (41.0-53.0); Hemoglobin 12.8 g/dL (13.5-17.5); Lymphocytes # (auto) 2.2 10 ^3/uL (0.4-5.4); Mean Corpuscular Hemoglobin 30.6 pg (28.0-32.0); Mean Corpuscular Hgb Conc. 34.6 g/dL (32.0-36.0); Mean Corpuscular Volume 88.4 fL (80.0-100.0); Monocytes % (auto) 12.3 % (0.0-12.0); Neutrophils # (auto) 4.7 10 ^3/uL (1.6-8.6); Neutrophils % (auto) 59.2 % (37.0-80.0); Platelet Count (auto) 171 10^3/uL (140-450); Red Blood Cells 4.21 10^6/uL (4.5-5.90); Red Cell Distribution Width 14.8 % (11.8-14.3)
[2021-05-17 06:12] LABS: Calcium 8.5 mg/dL (8.5-10.1); Potassium 3.9 mmol/L (3.5-5.1)
[2021-05-17 06:15] LABS: BUN/Creatinine Ratio 15.3
[2021-05-17 09:00] VITALS: BP 160/78
[2021-05-17] MEDS: TAMSULOSIN HYDROCHLORIDE 0.4 MG CAP PO SCH (10:40)
[2021-05-17] MEDS: METOPROLOL TARTRATE 50 MG TAB PO SCH (10:41)
[2021-05-17] MEDS: FAMOTIDINE 20 MG TAB PO SCH (10:42)
[2021-05-17] MEDS: amLODIPine BESYLATE 5 MG TAB PO SCH (10:42)
[2021-05-17 13:28] VITALS: BP 141/71
[2021-05-17 16:59] VITALS: BP 156/88
[2021-05-17] MEDS: RIVAROXABAN 20 MG TAB PO SCH (18:16)
[2021-05-17 22:00] VITALS: BP 143/72
[2021-05-18 05:00] VITALS: BP_SYST 132; BP_SYST 155; BP_DIAS 56; BP_DIAS 76
[2021-05-18] MEDS: ACCU-CHEK COMFORT CURVE STRIP VI SCH ×4 (06:04→21:38)
[2021-05-18] MEDS: InsuLIN REG 1unit/0.01ml Soln (100units/ml) SC SCH ×4 (06:05→21:40)
[2021-05-18 09:00] VITALS: BP 121/54
[2021-05-18] MEDS: TAMSULOSIN HYDROCHLORIDE 0.4 MG CAP PO SCH (09:32)
[2021-05-18] MEDS: METOPROLOL TARTRATE 50 MG TAB PO SCH (09:33)
[2021-05-18] MEDS: amLODIPine BESYLATE 5 MG TAB PO SCH (09:34)
[2021-05-18] MEDS: FAMOTIDINE 20 MG TAB PO SCH (09:34)
[2021-05-18 13:00] VITALS: BP 130/64
[2021-05-18 14:26] VITALS: BP 122/60
[2021-05-18 17:00] VITALS: BP 125/66
[2021-05-18] MEDS ORDERED: LACTULOSE 20Gm/30ML SOLN PO PRN (17:30)
[2021-05-18] MEDS: RIVAROXABAN 20 MG TAB PO SCH (18:00)
[2021-05-18] MEDS: DOCUSATE SOD 100 MG CAP PO SCH (21:38)
[2021-05-18 22:00] VITALS: BP 118/44
[2021-05-19 05:17] VITALS: BP 131/68
[2021-05-19] MEDS: ACCU-CHEK COMFORT CURVE STRIP VI SCH ×2 (06:39→11:30)
[2021-05-19] MEDS: InsuLIN REG 1unit/0.01ml Soln (100units/ml) SC SCH ×2 (06:39→11:30)
[2021-05-19 09:04] VITALS: BP 134/66
[2021-05-19] MEDS: DOCUSATE SOD 100 MG CAP PO SCH (09:14)
[2021-05-19] MEDS: TAMSULOSIN HYDROCHLORIDE 0.4 MG CAP PO SCH (09:15)
[2021-05-19] MEDS: METOPROLOL TARTRATE 50 MG TAB PO SCH (09:15)
[2021-05-19] MEDS: amLODIPine BESYLATE 5 MG TAB PO SCH (09:16)
[2021-05-19] MEDS: FAMOTIDINE 20 MG TAB PO SCH (09:16)
== END 2021-05-19 11:58 | disposition home or self-care (01) | DRG 272 ==
LOC: ER 07:17 → TELE 10:50 → TELE-CENTR 16:34
PROVIDERS: ADMIT Nurse Practitioner Acute Care; ATTEND Internal Medicine
PROC: 05763ZZ Dilation of Left Subclavian Vein, Percutaneous Approach (ICD-10-PCS; principal; 2021-05-16)
PROC: 05C63ZZ Extirpation of Matter from Left Subclavian Vein, Percutaneous Approach (ICD-10-PCS; 2021-05-16)
PROC: 057A3ZZ Dilation of Left Brachial Vein, Percutaneous Approach (ICD-10-PCS; 2021-05-16)
PROC: 05CA3ZZ Extirpation of Matter from Left Brachial Vein, Percutaneous Approach (ICD-10-PCS; 2021-05-16)
DX: I82.B12 Acute embolism and thrombosis of left subclavian vein (principal); E11.9 Type 2 diabetes mellitus without complications; N40.0 Benign prostatic hyperplasia without lower urinary tract symptoms; I82.A12 Acute embolism and thrombosis of left axillary vein; E78.5 Hyperlipidemia, unspecified; I11.0 Hypertensive heart disease with heart failure; I25.10 Atherosclerotic heart disease of native coronary artery without angina pectoris; Z20.822 Contact with and (suspected) exposure to COVID-19; I82.622 Acute embolism and thrombosis of deep veins of left upper extremity; E66.9 Obesity, unspecified; I50.9 Heart failure, unspecified; Z79.01 Long term (current) use of anticoagulants; Z95.0 Presence of cardiac pacemaker; Z86.73 Personal history of transient ischemic attack (TIA), and cerebral infarction without residual deficits; Z79.82 Long term (current) use of aspirin; Z79.84 Long term (current) use of oral hypoglycemic drugs; Z80.0 Family history of malignant neoplasm of digestive organs; Z80.3 Family history of malignant neoplasm of breast; Z80.41 Family history of malignant neoplasm of ovary; Z68.31 Body mass index [BMI] 31.0-31.9, adult
CPT/HCPCS: 36415; 37187; 37248; 37249; 71045; 71275; 74176; 76942; 80048; 80053; 81001; 81241; 82378; 82962; 83036; 83615; 84154; 84484; 85025; 85049; 85610; 85652; 85730; 86850; 86900; 86901; 87426; 93005; 93971; 96372; 99152; 99153; G0378; J1815; J2250; Q9967

== ENCOUNTER 2022-02-11 10:32 | Inpatient (IN) | payer MEDICARE, MEDICAID ==
[~2022-02-11] VITALS: Ht 167.6 cm; Wt 95.1 kg
[~2022-02-11 10:32] MED LIST changes: +AML5T PO; +CLON0.1T PO; -METF-370 PO; -METO-158 PO; +MULT-1058 PO
[2022-02-11 12:17] LABS: Urine Bacteria NONE SEEN /hpf (None Seen); Urine Blood Negative /uL (Negative); Urine Specific Gravity 1.014 (1.001-1.035); Urine WBC <1 /hpf (0 - 3)
[2022-02-11 12:18] LABS: Basophils # (auto) 0 10 ^3/uL (0-0.2); Basophils % (auto) 0.4 % (0.0-2.0); Eosinophils # (auto) 0 10 ^3/uL (0-0.8); Eosinophils % (auto) 0.1 % (0.0-7.0); Hematocrit 40.6 % (41.0-53.0); Hemoglobin 13.5 g/dL (13.5-17.5); Lymphocytes # (auto) 1.5 10 ^3/uL (0.4-5.4); Lymphocytes % (auto) 20.5 % (10.0-50.0); Mean Corpuscular Hemoglobin 29.5 pg (28.0-32.0); Mean Corpuscular Hgb Conc. 33.2 g/dL (32.0-36.0); Mean Corpuscular Volume 88.9 fL (80.0-100.0); Monocytes # (auto) 0.5 10 ^3/uL (0-1.3); Monocytes % (auto) 6.6 % (0.0-12.0); Neutrophils # (auto) 5.3 10 ^3/uL (1.6-8.6); Neutrophils % (auto) 72.4 % (37.0-80.0); Nucleated Red Blood Cells % 0.2 %; Red Blood Cells 4.57 10^6/uL (4.5-5.90); Red Cell Distribution Width 16.4 % (11.8-14.3); White Blood Cell 7.4 10^3/uL (4.4-10.8)
[2022-02-11 12:48] LABS: Potassium 4.1 mmol/L (3.5-5.1)
[2022-02-11 12:54] LABS: Albumin 3.3 g/dL (3.4-5.0); BUN/Creatinine Ratio 13.9; Bilirubin, Total 0.4 mg/dL (0.2-1.0); Total Protein 7.7 g/dL (6.4-8.2)
[2022-02-11] MEDS ORDERED: LISINOPRIL 20 MG TAB PO ONE (14:30)
[2022-02-11] MEDS ORDERED: MORPHINE SULFATE INJECTION 2 MG/ML SYRG IV PRN ×2 (16:30→20:00)
[2022-02-11] MEDS ORDERED: NITROGLYCERIN 0.4 MG SL TAB SL PRN (16:30)
[2022-02-11 19:00] VITALS: BP 157/68
[2022-02-11 20:00] VITALS: BP 157/68
[2022-02-11] MEDS ORDERED: IPRATROPIUM BROM 0.5 MG/2.5ML INH SOL NEB ONE (20:00)
[2022-02-11] MEDS ORDERED: BENAZEPRIL HCL 10 MG TAB PO ONE (20:00)
[2022-02-11] MEDS ORDERED: ACETAMINOPHEN 325 MG TAB PO PRN (20:00)
[2022-02-11] MEDS ORDERED: SUCRALFATE 1 GM/10 ML ORAL SUSP PO ONE (20:00)
[2022-02-11] MEDS ORDERED: LACTULOSE 20Gm/30ML SOLN PO PRN (20:00)
[2022-02-11] MEDS ORDERED: FERROUS SULFATE 325mg EC TAB PO ONE (20:00)
[2022-02-11] MEDS ORDERED: LABETALOL HCL 5 MG/ML 4ML SYRINGE IV PRN (20:00)
[2022-02-11] MEDS ORDERED: FOLIC ACID 1 MG TAB PO ONE (20:00)
[2022-02-11] MEDS ORDERED: ONDANSETRON HCL 4 MG/2 ML VIAL IV PRN (20:00)
[2022-02-11] MEDS ORDERED: HYDROcodone-ACET 5/325MG TAB PO PRN (20:00)
[2022-02-11] MEDS ORDERED: HYDROcodone-ACET 5/325MG TAB PO ONE (20:00)
[2022-02-11] MEDS ORDERED: DOCUSATE SOD 100 MG CAP PO PRN (20:00)
[2022-02-11] MEDS ORDERED: PANTOPRAZOLE 40 MG/10 ML VIAL INJ IV ONE (20:00)
[2022-02-11 20:37] LABS: Phosphorus 2.3 mg/dL (2.5-4.90)
[2022-02-11] MEDS: IPRATROPIUM BROM 0.5 MG/2.5ML INH SOL NEB SCH (21:17)
[2022-02-11 22:00] VITALS: BP 157/68
[2022-02-11] MEDS: ATORVASTATIN 20 MG TAB PO SCH (22:29)
[2022-02-11 23:10] VITALS: BP 157/68
[2022-02-11 23:21] LABS: INR 1.21 (0.9-1.15); Partial Thromboplastin Time 35.5 sec (23.6-33.0)
[2022-02-12] VITALS (8 sets, daily range): BP systolic 140–182; BP diastolic 63–75
[2022-02-12] MEDS: IPRATROPIUM BROM 0.5 MG/2.5ML INH SOL NEB SCH ×6 (02:00→22:30)
[2022-02-12 06:24] LABS: Basophils # (auto) 0 10 ^3/uL (0-0.2); Basophils % (auto) 0.5 % (0.0-2.0); Eosinophils # (auto) 0.1 10 ^3/uL (0-0.8); Eosinophils % (auto) 0.9 % (0.0-7.0); Hematocrit 37.7 % (41.0-53.0); Hemoglobin 12.7 g/dL (13.5-17.5); Lymphocytes # (auto) 2.2 10 ^3/uL (0.4-5.4); Lymphocytes % (auto) 36.3 % (10.0-50.0); Mean Corpuscular Hemoglobin 29.3 pg (28.0-32.0); Mean Corpuscular Hgb Conc. 33.6 g/dL (32.0-36.0); Mean Corpuscular Volume 87.3 fL (80.0-100.0); Monocytes # (auto) 0.6 10 ^3/uL (0-1.3); Monocytes % (auto) 9.8 % (0.0-12.0); Neutrophils # (auto) 3.2 10 ^3/uL (1.6-8.6); Neutrophils % (auto) 52.5 % (37.0-80.0); Nucleated Red Blood Cells % 0.1 %; Red Blood Cells 4.32 10^6/uL (4.5-5.90); Red Cell Distribution Width 16.5 % (11.8-14.3); White Blood Cell 6.1 10^3/uL (4.4-10.8)
[2022-02-12 06:44] LABS: INR 1.18 (0.9-1.15); Partial Thromboplastin Time 30.8 sec (23.6-33.0)
[2022-02-12] MEDS ORDERED: SUCRALFATE 1 GM/10 ML ORAL SUSP PO SCH (07:00)
[2022-02-12 07:03] LABS: Albumin 3.1 g/dL (3.4-5.0); Magnesium 2.1 mg/dL (1.6-2.6); Potassium 3.8 mmol/L (3.5-5.1)
[2022-02-12 07:13] LABS: Bilirubin, Total 0.6 mg/dL (0.2-1.0); CRP High Sensitivity 1.14 mg/dL (< 0.3); Phosphorus 2.7 mg/dL (2.5-4.90); Total Protein 7.1 g/dL (6.4-8.2); Uric Acid 5.9 mg/dL (3.5-7.2)
[2022-02-12] MEDS ORDERED: FERROUS SULFATE 325mg EC TAB PO SCH (08:00)
[2022-02-12] MEDS: hydrALAZINE HCL 20 MG/ML VL IV PRN ×2 (08:14→22:22)
[2022-02-12] MEDS ORDERED: CYANOCOBALAMIN 500 MCG TAB PO SCH (10:00)
[2022-02-12] MEDS ORDERED: PANTOPRAZOLE 40 MG/10 ML VIAL INJ IV SCH (10:00)
[2022-02-12] MEDS ORDERED: ASPirin 81 mg TAB PO SCH (10:00)
[2022-02-12] MEDS: BENAZEPRIL HCL 10 MG TAB PO SCH (10:01)
[2022-02-12] MEDS: CHOLECALCIFEROL (VITD3) 2,000 UNIT CAP/TAB PO SCH (10:01)
[2022-02-12] MEDS: FOLIC ACID 1 MG TAB PO SCH (10:01)
[2022-02-12] MEDS ORDERED: DEXTROSE (50%) 50ML SYRG IV PRN (11:30)
[2022-02-12] MEDS ORDERED: LABETALOL HCL 5 MG/ML 4ML SYRINGE IV PRN (11:30)
[2022-02-12] MEDS: InsuLIN REG 1unit/0.01ml Soln (100units/ml) SC SCH ×3 (12:00→22:00)
[2022-02-12] MEDS: ACCU-CHEK COMFORT CURVE STRIP VI SCH ×3 (12:00→22:10)
[2022-02-12] MEDS ORDERED: RIVAROXABAN 20 MG TAB PO SCH (18:00)
[2022-02-12] MEDS: TAMSULOSIN HYDROCHLORIDE 0.4 MG CAP PO SCH (18:14)
[2022-02-12] MEDS: ATORVASTATIN 20 MG TAB PO SCH (22:09)
[2022-02-13] MEDS: IPRATROPIUM BROM 0.5 MG/2.5ML INH SOL NEB SCH ×5 (02:00→18:52)
[2022-02-13 05:00] VITALS: BP 129/55
[2022-02-13] MEDS: InsuLIN REG 1unit/0.01ml Soln (100units/ml) SC SCH ×4 (05:56→21:56)
[2022-02-13] MEDS: ACCU-CHEK COMFORT CURVE STRIP VI SCH ×4 (07:41→22:46)
[2022-02-13 08:59] VITALS: BP 150/62
[2022-02-13] MEDS ORDERED: NIFEdipine ER 30 MG TAB PO SCH (10:00)
[2022-02-13] MEDS ORDERED: IODIXANOL 320MG/ML 100ML BTL IV ONE ×4 (10:59→12:28)
[2022-02-13] MEDS ORDERED: LIDOCAINE 2%HCL (LOCAL ANESTH.) INJ 10ml MDV ONE ×2 (10:59→11:07)
[2022-02-13] MEDS ORDERED: ANGIOMAX 250 MG VIAL IV ONE ×2 (11:05→12:32)
[2022-02-13] MEDS ORDERED: GLYCOPYRROLATE 0.2 MG/ML 1ML VIAL ONE ×2 (11:05→12:04)
[2022-02-13] MEDS ORDERED: SODIUM CHL 0.9% 50 ML ONE ×2 (11:05→12:32)
[2022-02-13] MEDS ORDERED: PHENYLEPHRINE HCL 10 MG/ML VL ONE (11:18)
[2022-02-13] MEDS ORDERED: DOPamine 1600MCG/ML D5W 0 ML IV ONE (11:19)
[2022-02-13] MEDS ORDERED: EPINEPHrine HCL 1 MG/10 ML SYRG ONE (11:19)
[2022-02-13] MEDS ORDERED: ATROPINE SULF 1 MG/10ml SYR ONE (11:24)
[2022-02-13] MEDS ORDERED: HYDROmorphone HCL 2 MG/ML VL ONE ×2 (11:27→11:59)
[2022-02-13] MEDS ORDERED: hydrALAZINE HCL 20 MG/ML VL ONE (11:45)
[2022-02-13] MEDS ORDERED: TICAGRELOR 90 MG TAB ONE (12:42)
[2022-02-13] MEDS: FOLIC ACID 1 MG TAB PO SCH (16:30)
[2022-02-13] MEDS: BENAZEPRIL HCL 10 MG TAB PO SCH (16:31)
[2022-02-13] MEDS: CHOLECALCIFEROL (VITD3) 2,000 UNIT CAP/TAB PO SCH (16:31)
[2022-02-13] MEDS: FAMOTIDINE 20 MG TAB PO SCH (16:31)
[2022-02-13 17:00] VITALS: BP 132/63
[2022-02-13] MEDS: TAMSULOSIN HYDROCHLORIDE 0.4 MG CAP PO SCH (18:39)
[2022-02-13] MEDS ORDERED: IPRATROPIUM BROM 0.5 MG/2.5ML INH SOL NEB PRN (19:45)
[2022-02-13] MEDS: ATORVASTATIN 20 MG TAB PO SCH (21:55)
[2022-02-13 22:29] VITALS: BP 128/64
[2022-02-14 05:00] VITALS: BP 104/55
[2022-02-14] MEDS: InsuLIN REG 1unit/0.01ml Soln (100units/ml) SC SCH ×4 (06:11→23:05)
[2022-02-14] MEDS: ACCU-CHEK COMFORT CURVE STRIP VI SCH ×4 (06:13→22:49)
[2022-02-14 06:16] LABS: Basophils # (auto) 0.1 10 ^3/uL (0-0.2); Basophils % (auto) 0.6 % (0.0-2.0); Eosinophils # (auto) 0 10 ^3/uL (0-0.8); Eosinophils % (auto) 0.4 % (0.0-7.0); Hemoglobin 12.2 g/dL (13.5-17.5); Lymphocytes # (auto) 1.2 10 ^3/uL (0.4-5.4); Lymphocytes % (auto) 14.4 % (10.0-50.0); Mean Corpuscular Hemoglobin 29.7 pg (28.0-32.0); Mean Corpuscular Hgb Conc. 33.9 g/dL (32.0-36.0); Mean Corpuscular Volume 87.5 fL (80.0-100.0); Monocytes % (auto) 11.9 % (0.0-12.0); Neutrophils # (auto) 6.3 10 ^3/uL (1.6-8.6); Neutrophils % (auto) 72.7 % (37.0-80.0); Nucleated Red Blood Cells % 0.2 %; Red Blood Cells 4.12 10^6/uL (4.5-5.90); Red Cell Distribution Width 16.3 % (11.8-14.3); White Blood Cell 8.6 10^3/uL (4.4-10.8)
[2022-02-14 06:24] LABS: Calcium 8.9 mg/dL (8.5-10.1); Potassium 3.8 mmol/L (3.5-5.1)
[2022-02-14 06:26] LABS: BUN/Creatinine Ratio 15.7
[2022-02-14 08:30] VITALS: BP 96/46
[2022-02-14] MEDS: FAMOTIDINE 20 MG TAB PO SCH (09:23)
[2022-02-14] MEDS: FOLIC ACID 1 MG TAB PO SCH (09:23)
[2022-02-14] MEDS: CHOLECALCIFEROL (VITD3) 2,000 UNIT CAP/TAB PO SCH (09:24)
[2022-02-14] MEDS: SODIUM CHLORIDE 0.9% 1,000 ML IV SCH (09:45)
[2022-02-14 12:53] VITALS: BP 118/49
[2022-02-14 16:49] VITALS: BP 121/51
[2022-02-14] MEDS: TAMSULOSIN HYDROCHLORIDE 0.4 MG CAP PO SCH (17:16)
[2022-02-14] MEDS ORDERED: RIVAROXABAN 20 MG TAB PO SCH (18:00)
[2022-02-14 22:00] VITALS: BP 118/58
[2022-02-14] MEDS: ATORVASTATIN 20 MG TAB PO SCH (22:00)
[2022-02-15] MEDS: SODIUM CHLORIDE 0.9% 1,000 ML IV SCH ×2 (02:25→12:25)
[2022-02-15 04:38] VITALS: BP 118/58
[2022-02-15 05:00] VITALS: BP 110/48
[2022-02-15 06:27] LABS: Potassium 3.9 mmol/L (3.5-5.1)
[2022-02-15 06:45] LABS: BUN/Creatinine Ratio 14.1; Calcium 8.6 mg/dL (8.5-10.1)
[2022-02-15] MEDS: ACCU-CHEK COMFORT CURVE STRIP VI SCH ×2 (06:46→11:30)
[2022-02-15] MEDS: InsuLIN REG 1unit/0.01ml Soln (100units/ml) SC SCH ×2 (06:46→11:30)
[2022-02-15 09:00] VITALS: BP 138/57
[2022-02-15] MEDS: CHOLECALCIFEROL (VITD3) 2,000 UNIT CAP/TAB PO SCH (09:25)
[2022-02-15] MEDS: FOLIC ACID 1 MG TAB PO SCH (09:26)
[2022-02-15] MEDS: FAMOTIDINE 20 MG TAB PO SCH (09:26)
[2022-02-15 12:49] VITALS: BP 132/63
[2022-02-15 13:00] VITALS: BP 153/68
== END 2022-02-15 15:20 | disposition home health service (06) | DRG 35 ==
LOC: ER 10:32 → TELE-WESTW 16:29
PROVIDERS: ADMIT Hospitalist; ATTEND Internal Medicine
PROC: 037L3DZ Dilation of Left Internal Carotid Artery with Intraluminal Device, Percutaneous Approach (ICD-10-PCS; principal; 2022-02-13)
PROC: B318YZZ Fluoroscopy of Bilateral Internal Carotid Arteries using Other Contrast (ICD-10-PCS; 2022-02-13)
DX: I65.22 Occlusion and stenosis of left carotid artery (principal); I16.1 Hypertensive emergency; E78.5 Hyperlipidemia, unspecified; N40.0 Benign prostatic hyperplasia without lower urinary tract symptoms; E11.9 Type 2 diabetes mellitus without complications; Z20.822 Contact with and (suspected) exposure to COVID-19; E66.9 Obesity, unspecified; I10 Essential (primary) hypertension; I25.10 Atherosclerotic heart disease of native coronary artery without angina pectoris; Z79.82 Long term (current) use of aspirin; Z80.0 Family history of malignant neoplasm of digestive organs; Z86.718 Personal history of other venous thrombosis and embolism; Z86.73 Personal history of transient ischemic attack (TIA), and cerebral infarction without residual deficits; Z95.0 Presence of cardiac pacemaker; Z79.899 Other long term (current) drug therapy; Z88.0 Allergy status to penicillin; Z68.33 Body mass index [BMI] 33.0-33.9, adult
CPT/HCPCS: 36224; 36415; 36600; 37215; 70450; 71045; 80048; 80053; 80061; 81001; 82550; 82728; 82805; 82962; 83036; 83615; 83690; 83735; 83880; 84100; 84443; 84484; 84550; 85025; 85379; 85610; 85652; 85730; 86141; 87040; 87086; 93005; 93306; 93886; 94640; 97163; 99152; 99153; C9113; G0378; J1815; J2001; J2405; Q9967